=== PATIENT | female | born 1960 | race Caucasian/White ===

== ENCOUNTER 2017-08-30 08:11 | Day surgery (SDC) | payer MEDICAID ==
[~2017-08-30 08:11] MED LIST: Bupivacaine 0.25%/EPINEPHrine 1:200,000 10 ML SDV INJECT ONE; Bupivacaine 25%/EPINEPHrine/PF 30 ML ONE; Lactated Ringers 1,000 ML IV SCH; traMADol 50 MG Tab PO PRN
--- NOTE | 2017-08-30 08:38 | PCM.PREANE ---
Preanesthetic Assessment - Anesthesia/Transfusion/Family Hx Anesthesia History: Prior Anesthesia Reaction Other Type of Anesthesia Reaction Comment: pt. reports vomiting post surgery x1 Family History of Anesthesia Reaction: No Transfusion History: No Prior Transfusion(s) Intubation History: Unknown - Review of Systems General: No Symptoms Pulmonary: No Symptoms Cardiovascular: No Symptoms Gastrointestinal: No Symptoms Neurological: No Symptoms Other: Reports: None - Physical Assessment Height: 1.65 m Weight: 63.049 kg ASA Class: 2 Mental Status: Alert & Oriented x3 Airway Class: Mallampati = 2 Dentition: Reports: Normal Dentition, Bridge (permanent bridge upper front) Thyro-Mental Finger Breadths: 2 Mouth Opening Finger Breadths: 2 ROM/Head Extension: Limited/Partial Lungs: Clear to Auscultation, Normal Respiratory Effort Cardiovascular: Regular Rate, Regular Rhythm - Allergies Allergies/Adverse Reactions: Allergies Allergy/AdvReac Type Severity Reaction Status Date / Time codeine Allergy Drowsiness Verified 08/28/17 10:22 erythromycin base Allergy Vomiting Verified 08/28/17 10:22 Penicillins Allergy Rash Verified 08/28/17 10:22 - Blood Blood Available: No - Anesthesia Plan Pre-Op Medication Ordered: None - Acknowledgements Anesthesia Type Planned: MAC Pt an Appropriate Candidate for the Planned Anesthesia: Yes Alternatives and Risks of Anesthesia Discussed w Pt/Guardian: Yes Pt/Guardian Understands and Agrees with Anesthesia Plan: Yes PreAnesthesia Questionnaire HEENT History: Reports: Cataract Other HEENT History: uses reading glasses, has upper permanent dental bridge Cardiovascular History: Reports: Other (See Below) Other Cardiovascular History: states hx of low blood pressure Respiratory History: Reports: Asthma, Bronchitis, Recurrent Other Respiratory History: states HX of asthma, "has been really good lately"- no inhaler Gastrointestinal History: Reports: Chronic Constipation Other Gastrointestinal History: states hx of heartburn/ GERD. has not had recently Musculoskeletal History: Reports: Fracture Other Musculoskeletal History: hx of "chipped" right elbow and both ankles Neurological History: Reports: Other (See Below) Other Neuro History: Neurofibromatosis, hx of motion sickness Psychiatric History: Reports: Anxiety Endocrine/Metabolic History: Reports: Other (See Below) Other Endocrine/Metabolic History: states "aspiration of thyroid fluid x5" Oncologic (Cancer) History: Reports: Basal Cell Carcinoma Other Oncologic History: removed from back Dermatologic History: Reports: Other (See Below) - Past Surgical History HEENT Surgical History: Reports: Cataract Surgery GI Surgical History: Reports: Colonoscopy, Other (See Below) Other GI Surgeries/Procedures: hx of hemorrhoidectomy Female Surgical History: Reports: Hysterectomy Musculoskeletal Surgical History: Reports: Other (See Below) Other Musculoskeletal Surgeries/Procedures:: Excision of multiple neurofibromas - SUBSTANCE USE Smoking Status *Q: Never Smoker Recreational Drug Use History: No - HOME MEDS Home Medications: Home Meds Docusate Sodium [Colace] 100 mg PO DAILY 08/28/17 [History] Polyethylene Glycol 3350 [MiraLAX] 1 pkt PO ASDIRECTED 08/28/17 [History] Psyllium Husk [Fiber] 1 cap PO DAILY 08/28/17 [History] - CURRENT (IN HOUSE) MEDS Current Meds: Current Medications Lactated Ringer's (Ringers, Lactated) 1,000 mls @ 125 mls/hr IV ASDIRECTED [facility] Last Admin: 08/30/17 08:20 Dose: 125 mls/hr Tramadol HCl (Ultram) 50 mg PO Q4H PRN PRN Reason: Pain Discontinued Medications Bupivacaine HCl/Epinephrine Bitart (Marcaine 0.25%/Epinephrine 1:200,000) 10 ml INJECT ONETIME ONE Stop: 08/30/17 08:01 Bupivacaine HCl/Epinephrine Bitart (Sensorc Mpf 0.25%-Epi 1:[id number]) Confirm Administered Dose 30 mls @ as directed .ROUTE .STK-MED ONE Stop: 08/30/17 07:20
[2017-08-30] MEDS ORDERED: fentaNYL 100 MCG/2 ML SDV ONE (08:55)
[2017-08-30] MEDS ORDERED: Propofol 200 MG/20 ML SDV ONE ×2 (08:55→09:40)
[2017-08-30] MEDS ORDERED: Midazolam 1 MG/ML 2 ML SDV ONE (08:55)
[2017-08-30] MEDS ORDERED: Lidocaine 2% 5 ML SDV ONE (08:56)
[2017-08-30] MEDS ORDERED: Octyl 2-Cyanoacrylate 1 Tube ONE (09:43)
[2017-08-30] MEDS ORDERED: ePHEDrine 50 MG/ML SDV ONE (09:51)
--- NOTE | 2017-08-30 10:19 | PCM.OPNOTE ---
- General Post-Op/Procedure Note Date of Surgery/Procedure: 08/30/17 Operative Procedure(s): excision of 1.5cm chest, 1cm right leg, 2cm left arm and 2cm back neurofibromas. Simple closures. Pre Op Diagnosis: neurofibromatosis Post-Op Diagnosis: Same Anesthesia Technique: Local, MAC Primary Surgeon: Beatriz Alvarenga Complications: None Condition: Good
[2017-08-30 10:58] VITALS: BP 112/55
--- NOTE | 2017-08-30 10:58 | PCM48HPAN ---
Post Anesthesia Note - EVALUATION WITHIN 48HRS OF ANESTHETIC Vital Signs in Normal Range: Yes Patient Participated in Evaluation: Yes Respiratory Function Stable: Yes Airway Patent: Yes Cardiovascular Function Stable: Yes Hydration Status Stable: Yes Pain Control Satisfactory: Yes Nausea and Vomiting Control Satisfactory: Yes Mental Status Recovered: Yes Resp Rate: 13 - COMMENTS/OBSERVATIONS Free Text/Narrative:: no anesthesia problems
--- NOTE | 2017-08-30 15:45 | OR ---
SURGEON: JASMIN ROBINS MD DATE OF PROCEDURE: 08/30/2017 PREOPERATIVE DIAGNOSIS: Neurofibromatosis with multiple lesions. POSTOPERATIVE DIAGNOSIS: Neurofibromatosis with multiple lesions. PROCEDURES: 1. Excision of 2 cm back neurofibroma with simple 2 cm closure. 2. Excision of 1.5 cm chest neurofibroma with simple closure. 3. Excision of left arm 2 cm neurofibroma with simple closure. 4. Excision of 1 cm leg neurofibroma with simple closure. INDICATIONS: Ms. Johnson is a 57-year-old female, seen today in evaluation for several neurofibromas that are bothersome to her. She has neurofibromas too numerous to count, there are only four that are actually causing irritation and pain at this time. They are somewhat deep in most of the areas. The left arm, chest, and back neurofibromas are in the subcutaneous tissue in the fat layer below the skin and are quite deep. The right leg neurofibroma is more pedunculated in the skin. We discussed risks and benefits of removal in the operating room, given the deep component of these. Risks were including, but not limited to, bleeding, infection, damage to underlying or overlying structures, possible need for future interventions, possible scarring. PROCEDURE IN DETAIL: After informed consent was obtained and placed on the chart, the patient was brought to operating theater and laid in the supine position. After adequate local MAC anesthesia was obtained, over the anterior lesion the chest neurofibroma was excised in elliptical fashion taking care to dissect circumferentially around the lesion not leaving anything behind. Dissection was carried down into the subcutaneous tissues and meticulous hemostasis was obtained. Attention was then paid to the right leg lesion and was excised for an ellipse and closed using a 4-0 Monocryl in simple 1 cm closure. The left arm lesion was then addressed and dissection was carried circumferentially again through the skin and subcutaneous tissues into the deeper fat layer. Once adequately excised circumferentially, the area was hemostasis and closed using a 4-0 nylon stitch again in a simple fashion for 2 cm. These three wounds were then dressed with Dermabond. Once allowed to dry, the patient was laid on her side and attention was then paid to the 2 cm back neurofibroma. It was anesthetized and prepped in normal fashion and once ready, excised in elliptical fashion taking care to dissect circumferentially around into the subcutaneous tissue and deep fat layer. Once adequately excised meticulous hemostasis was obtained, and 3-0 Prolene suture was used for 2 cm closure in a simple fashion. This was dressed with a Tegaderm border. The patient tolerated this well. All counts and needles were correct at the end of the case. FOLLOWUP INSTRUCTIONS: The patient was given a prescription for pain control, and she will see us in clinic in 2 weeks sooner if any problems, questions, or concerns. Wound care instructions provided. HESUBHA / CHRISTIANO /[id number]
== END 2017-08-30 11:10 | disposition home or self-care (01) ==
LOC: MW.SDS 08:11
PROVIDERS: ATTEND Plastic Surgery
DX: Q85.00 Neurofibromatosis, unspecified (principal); J45.909 Unspecified asthma, uncomplicated; K59.09 Other constipation; K21.9 Gastro-esophageal reflux disease without esophagitis; F41.9 Anxiety disorder, unspecified; Z88.5 Allergy status to narcotic agent; Z88.8 Allergy status to other drugs, medicaments and biological substances; Z88.0 Allergy status to penicillin; Z79.899 Other long term (current) drug therapy; Z98.890 Other specified postprocedural states
CPT/HCPCS: 64792; 88305; A9270; J2250; J3010; J7120; J0690; J2704

== ENCOUNTER 2018-05-04 07:04 | Day surgery (SDC) | payer MEDICAID ==
[2018-05-04] MEDS ORDERED: Midazolam 1 MG/ML 2 ML SDV ONE (07:28)
[2018-05-04] MEDS ORDERED: Propofol 200 MG/20 ML SDV ONE ×2 (07:28→08:50)
[2018-05-04] MEDS ORDERED: fentaNYL 100 MCG/2 ML SDV ONE (07:28)
--- NOTE | 2018-05-04 07:47 | PCM.PREANE ---
Preanesthetic Assessment - Anesthesia/Transfusion/Family Hx Anesthesia History: Prior Anesthesia Reaction (no ponv after use of zofran intra op) Other Type of Anesthesia Reaction Comment: pt. reports vomiting post surgery x1 Transfusion History: No Prior Transfusion(s) Intubation History: Unknown - Review of Systems General: No Symptoms Pulmonary: No Symptoms Cardiovascular: No Symptoms Gastrointestinal: No Symptoms Neurological: No Symptoms Other: Reports: None - Physical Assessment O2 Sat by Pulse Oximetry: 97 Respiratory Rate: 16 Vital Signs: Last Vital Signs Temp 98.2 F 05/04/18 07:30 Pulse 80 05/04/18 07:30 Resp 16 05/04/18 07:30 BP 124/78 05/04/18 07:30 Pulse Ox 97 05/04/18 07:30 Height: 5 ft 5 in Weight: 63.049 kg ASA Class: 2 Mental Status: Alert & Oriented x3 Airway Class: Mallampati = 1 Dentition: Reports: Bridge (central maxillary) ROM/Head Extension: Full Lungs: Clear to Auscultation, Normal Respiratory Effort Cardiovascular: Regular Rate, Regular Rhythm - Allergies Allergies/Adverse Reactions: Allergies Allergy/AdvReac Type Severity Reaction Status Date / Time codeine Allergy Drowsiness Verified 05/02/18 09:37 erythromycin base Allergy Vomiting Verified 05/02/18 09:37 Penicillins Allergy Rash Verified 05/02/18 09:37 - Blood Blood Available: No - Anesthesia Plan Pre-Op Medication Ordered: None - Acknowledgements Anesthesia Type Planned: MAC Pt an Appropriate Candidate for the Planned Anesthesia: Yes Alternatives and Risks of Anesthesia Discussed w Pt/Guardian: Yes Pt/Guardian Understands and Agrees with Anesthesia Plan: Yes PreAnesthesia Questionnaire HEENT History: Reports: Cataract, Other (See Below) Other HEENT History: uses glasses for reading Cardiovascular History: Reports: Other (See Below) Other Cardiovascular History: states hx of low blood pressure Respiratory History: Reports: Asthma, Bronchitis, Recurrent Other Respiratory History: states HX of asthma, "has been really good lately"- no inhaler Gastrointestinal History: Reports: Chronic Diarrhea, GERD Other Gastrointestinal History: states hx of heartburn/ GERD. has not had recently Genitourinary History: Reports: None Musculoskeletal History: Reports: Back Pain, Chronic, Fracture, Other (See Below ) Other Musculoskeletal History: she was told she had a disease simular to Cerebral Palsy when she was born- never diagnosed hx of fx right elbow and bilateral ankles (no surgery) Neurological History: Reports: Other (See Below) Other Neuro History: hx of Neurofibromatosis Psychiatric History: Reports: Anxiety Endocrine/Metabolic History: Reports: Other (See Below) Other Endocrine/Metabolic History: fluid around thyroid gland Oncologic (Cancer) History: Reports: Basal Cell Carcinoma Other Oncologic History: removed from back Dermatologic History: Reports: Other (See Below) - Past Surgical History HEENT Surgical History: Reports: Cataract Surgery Female Surgical History: Reports: Hysterectomy Endocrine Surgical History: Reports: Other (See Below) Other Endocrine Surgeries/Procedures: drainage of fluid from thyroid gland Neurological Surgical History: Reports: Other (See Below) Other Neurological Surgeries/Procedures: removal of multiple neurofibromas Oncologic Surgical History: Reports: Other (See Below) Other Oncologic Surgeries/Procedures: basal cell removed from back Dermatological Surgical History: Reports: Skin Biopsy - SUBSTANCE USE Smoking Status *Q: Never Smoker Recreational Drug Use History: No - HOME MEDS Home Medications: Home Meds Docusate Sodium [Colace] 100 mg PO DAILY 08/28/17 [History] Polyethylene Glycol 3350 [MiraLAX] 1 pkt PO ASDIRECTED 08/28/17 [History] Psyllium Husk [Fiber] 1 cap PO DAILY 08/28/17 [History] Mv-Mn/Folic Acid/Calcium/Vit K [Women's 50 Plus Daily Formula] 1 tab PO DAILY [History] - CURRENT (IN HOUSE) MEDS Current Meds: Current Medications Bupivacaine HCl/Epinephrine Bitart (Marcaine 0.25%/Epinephrine 1:200,000) 30 ml INJECT ONETIME ONE Stop: 05/04/18 08:01 Lactated Ringer's (Ringers, Lactated) 1,000 mls @ 125 mls/hr IV ASDIRECTED [facility] Tramadol HCl (Ultram) 50 mg PO Q4H PRN PRN Reason: Pain Discontinued Medications Fentanyl (Sublimaze) Confirm Administered Dose 100 mcg .ROUTE .STK-MED ONE Stop: 05/04/18 07:29 Midazolam HCl (Versed 1 Mg/Ml) Confirm Administered Dose 2 mg .ROUTE .STK-MED ONE Stop: 05/04/18 07:29 Propofol (Diprivan 20 Ml) Confirm Administered Dose 200 mg .ROUTE .STK-MED ONE Stop: 05/04/18 07:29
[2018-05-04] MEDS ORDERED: Lactated Ringers 1,000 ML IV SCH (08:00)
[2018-05-04] MEDS ORDERED: Bupivacaine 0.25%/EPINEPHrine 1:200,000 10 ML SDV INJECT ONE (08:00)
[2018-05-04] MEDS ORDERED: traMADol 50 MG Tab PO PRN (08:00)
[2018-05-04] MEDS ORDERED: Bupivacaine 25%/EPINEPHrine/PF 30 ML ONE (08:26)
[2018-05-04] MEDS ORDERED: Ondansetron 4 MG/2 ML SDV IVPUSH ONE (09:04)
[2018-05-04] MEDS ORDERED: fentaNYL 100 MCG/2 ML SDV IVPUSH PRN (09:04)
[2018-05-04] MEDS ORDERED: Bupivacaine 0.25%/EPINEPHrine 1:200,000 10 ML SDV ONE (09:23)
--- NOTE | 2018-05-04 10:55 | PCM48HPAN ---
Post Anesthesia Note - EVALUATION WITHIN 48HRS OF ANESTHETIC Vital Signs in Normal Range: Yes Patient Participated in Evaluation: Yes Respiratory Function Stable: Yes Airway Patent: Yes Cardiovascular Function Stable: Yes Hydration Status Stable: Yes Pain Control Satisfactory: Yes Nausea and Vomiting Control Satisfactory: Yes Mental Status Recovered: Yes Resp Rate: 18
[2018-05-04 11:13] VITALS: BP 110/68
--- NOTE | 2018-05-07 12:58 | PCM.OPNOTE ---
- General Post-Op/Procedure Note Date of Surgery/Procedure: 05/04/18 Operative Procedure(s): excision of 4 back neurofibromas 2cm each with simple closure, excision of right leg neurofibroma 6cm with 6cm intermediate repair, excison of 2 left leg neurofibromas 1.5cm and 2cm with simple closures, excision of left foot lesion 1.5cm with simple repair, excision of right cheek/ face neurofibroma 2cm with simple repair. Pre Op Diagnosis: neurofibromatosis Post-Op Diagnosis: Same Anesthesia Technique: Local, MAC Primary Surgeon: Beatriz Alvarenga Cleaner Laboratory Equipment: Holley Danielle Complications: None Condition: Good Free Text/Narrative:: [id number]
--- NOTE | 2018-05-07 14:01 | OR ---
SURGEON: JASMIN ROBINS MD DATE OF PROCEDURE: 05/04/2018 PREOPERATIVE DIAGNOSIS: Neurofibromatosis. POSTOPERATIVE DIAGNOSIS: Neurofibromatosis, multiple irritated lesions. PROCEDURES: 1. Excision of right leg neurofibroma 6 cm with a 6 cm intermediate repair. 2. Excision of 4 back neurofibromas, 2 cm each with simple closure each. 3. Excision of 2 left leg neurofibromas, 1.5 cm and 2 cm respectively with simple closures each. 4. Excision of left foot lesion 1.5cm with simple repair. 5. Excision of right cheek base neurofibroma 2 cm with simple repair. PEACH GROWER: SUSANA Briseno. REASON FOR AND ROLE OF PEACH GROWER: Retraction, prepping, draping, positioning and closure assistance. ANESTHESIA: Local MAC. INDICATIONS: Ms. Johnson is a 58-year-old female with significant neurofibromatosis. She has several lesions that are bothering her and have grown. Risks and benefits of removal were discussed with her and she was in agreement to proceed. Risks were including, but not limited to, bleeding, infection, damage to underlying or overlying structures, possible need for future interventions, possible scarring. PROCEDURE IN DETAIL: After informed consent was obtained and placed on the chart, the patient was brought to the operating theater and laid in a floppy lateral left side down decubitus position. Once adequately prepped and draped, attention was then paid first the 4 back neurofibromas which were excised in elliptical fashion for 2 cm each. These were sent to pathology separately and closed in a simple fashion using a deep Monocryl stitch. Once adequately closed, they were dressed with Steri-Strips. Attention was then paid to excision of the right leg neurofibroma for a total of 6 cm with a 6 cm intermediate repair. She tolerated this well and was dressed with Steri-Strips. Attention was then paid to excision of the left leg neurofibromas after repositioning and the medial and lateral leg lesions were excised for a total length of 1.5 cm and 2 cm respectively. Both were closed in a simple fashion using deep Monocryl stitches and dressed with Steri-Strips. Attention was then paid to the left foot lesion and this was excised in an elliptical fashion again for 1.5 cm with simple repair for the same length. It was again dressed with Steri-Strips. Attention was then paid to the right cheek lesion and this was anesthetized and excised for an elliptical fashion for 2 cm and closed again using a simple repair. The patient tolerated this well and all counts and needles were correct at the end of the case. HESUBHA / CHRISTIANO /[id number] MTDD
== END 2018-05-04 11:30 | disposition home or self-care (01) ==
LOC: MW.SDS 07:04
PROVIDERS: ATTEND Plastic Surgery
DX: D23.5 Other benign neoplasm of skin of trunk (principal); D23.72 Other benign neoplasm of skin of left lower limb, including hip; D23.71 Other benign neoplasm of skin of right lower limb, including hip; D23.39 Other benign neoplasm of skin of other parts of face; J40 Bronchitis, not specified as acute or chronic; K21.9 Gastro-esophageal reflux disease without esophagitis; F41.9 Anxiety disorder, unspecified; Z88.0 Allergy status to penicillin; Z88.5 Allergy status to narcotic agent; Z79.899 Other long term (current) drug therapy
CPT/HCPCS: 21011; 21930; 27327; 27632; 28039; J2250; J2704; J3010; J3490; J7120; 88305

== ENCOUNTER 2018-09-18 07:13 | Day surgery (SDC) | payer MEDICAID ==
[~2018-09-18 07:13] MED LIST changes: -Bupivacaine 0.25%/EPINEPHrine 1:200,000 10 ML SDV INJECT ONE; -Bupivacaine 25%/EPINEPHrine/PF 30 ML ONE; +Sodium Chloride 0.9% 10 ML SDV IV PRN; +Sodium Chloride 0.9% 10 ML Syringe FLUSH PRN; +Sodium Chloride 0.9% 2.5 ML Syringe FLUSH PRN; -traMADol 50 MG Tab PO PRN
--- NOTE | 2018-09-18 08:29 | PCM.PREANE ---
Preanesthetic Assessment - Anesthesia/Transfusion/Family Hx Anesthesia History: Prior Anesthesia Reaction Other Type of Anesthesia Reaction Comment: pt. reports vomiting post surgery x1 Family History of Anesthesia Reaction: No Transfusion History: No Prior Transfusion(s) Intubation History: Unknown - Review of Systems General: No Symptoms Pulmonary: No Symptoms Cardiovascular: No Symptoms Gastrointestinal: Constipation Neurological: No Symptoms Other: Reports: None - Physical Assessment O2 Sat by Pulse Oximetry: 98 Respiratory Rate: 14 Vital Signs: Last Vital Signs Temp 36.1 C 09/18/18 07:35 Pulse 82 09/18/18 07:35 Resp 14 09/18/18 07:35 BP 113/79 09/18/18 07:35 Pulse Ox 98 09/18/18 07:35 Height: 5 ft 5 in Weight: 63.957 kg ASA Class: 2 Mental Status: Alert & Oriented x3 Airway Class: Mallampati = 2 Dentition: Reports: Bridge (permanent bridge upper front) Thyro-Mental Finger Breadths: 3 Mouth Opening Finger Breadths: 2 ROM/Head Extension: Full Lungs: Clear to Auscultation, Normal Respiratory Effort Cardiovascular: Regular Rate, Regular Rhythm - Allergies Allergies/Adverse Reactions: Allergies Allergy/AdvReac Type Severity Reaction Status Date / Time codeine Allergy Drowsiness Verified 09/13/18 09:40 erythromycin base Allergy Vomiting Verified 09/13/18 09:40 Penicillins Allergy Rash Verified 09/13/18 09:40 metal Allergy Rash Uncoded 09/13/18 09:40 - Blood Blood Available: No - Anesthesia Plan Pre-Op Medication Ordered: None - Acknowledgements Anesthesia Type Planned: MAC Pt an Appropriate Candidate for the Planned Anesthesia: Yes Alternatives and Risks of Anesthesia Discussed w Pt/Guardian: Yes Pt/Guardian Understands and Agrees with Anesthesia Plan: Yes PreAnesthesia Questionnaire HEENT History: Reports: Cataract, Other (See Below) Other HEENT History: uses glasses for reading, top premanent bridge Cardiovascular History: Reports: Other (See Below) Other Cardiovascular History: states hx of low blood pressure Respiratory History: Reports: Asthma Other Respiratory History: states HX of asthma as a young adult Gastrointestinal History: Reports: Hemorrhoids, Other (See Below) Other Gastrointestinal History: heartburn and reflux in the past, none recently Genitourinary History: Reports: None Musculoskeletal History: Reports: Back Pain, Chronic, Fracture, Other (See Below ) Other Musculoskeletal History: "muscle and nerve disorer", hx of "chip fracture" to right elbow and bilateral ankles (no surgery) Neurological History: Reports: Other (See Below) Other Neuro History: hx of Neurofibromatosis, "muscle and nerve disorder" Psychiatric History: Reports: Anxiety, Depression Endocrine/Metabolic History: Reports: Other (See Below) Other Endocrine/Metabolic History: "fluid around thyroid gland drained" Hematologic History: Reports: None Immunologic History: Reports: None Oncologic (Cancer) History: Reports: Basal Cell Carcinoma Dermatologic History: Reports: Other (See Below) - Past Surgical History Head Surgeries/Procedures: Reports: None HEENT Surgical History: Reports: Cataract Surgery Cardiovascular Surgical History: Reports: None Respiratory Surgical History: Reports: None GI Surgical History: Reports: Colonoscopy (10 years ago - normal), Other (See Below) Other GI Surgeries/Procedures: hx of hemorrhoidectomy Female Surgical History: Reports: Hysterectomy Endocrine Surgical History: Reports: None Neurological Surgical History: Reports: None Musculoskeletal Surgical History: Reports: Other (See Below) Other Musculoskeletal Surgeries/Procedures:: Excision of multiple neurofibromas Oncologic Surgical History: Reports: Other (See Below) Other Oncologic Surgeries/Procedures: basal cell removed from back Dermatological Surgical History: Reports: Skin Biopsy - SUBSTANCE USE Smoking Status *Q: Never Smoker Recreational Drug Use History: No - HOME MEDS Home Medications: Home Meds Docusate Sodium [Colace] 100 mg PO DAILY 08/28/17 [History] Polyethylene Glycol 3350 [MiraLAX] 1 pkt PO ASDIRECTED 08/28/17 [History] Psyllium Husk [Fiber] 1 cap PO DAILY 08/28/17 [History] - CURRENT (IN HOUSE) MEDS Current Meds: Current Medications Lactated Ringer's (Ringers, Lactated) 1,000 mls @ 125 mls/hr IV ASDIRECTED [facility] Last Admin: 09/18/18 07:39 Dose: 125 mls/hr Sodium Chloride (Saline Flush) 10 ml FLUSH ASDIRECTED PRN PRN Reason: Keep Vein Open Sodium Chloride (Saline Flush) 2.5 ml FLUSH ASDIRECTED PRN PRN Reason: Keep Vein Open Sodium Chloride (Saline Flush) 10 ml FLUSH ASDIRECTED PRN PRN Reason: Keep Vein Open Sodium Chloride (Saline Flush) 2.5 ml FLUSH ASDIRECTED PRN PRN Reason: Keep Vein Open Sodium Chloride (Normal Saline) 10 ml IV ASDIRECTED PRN PRN Reason: IV Use
--- NOTE | 2018-09-18 11:00 | PCM.OPNOTE ---
- General Post-Op/Procedure Note Date of Surgery/Procedure: 09/18/18 Operative Procedure(s): Screening colonoscopy Findings: Diverticulosis Pre Op Diagnosis: Screening colonoscopy Post-Op Diagnosis: diverticulosis Anesthesia Technique: MAC Primary Surgeon: Noni Wood Condition: Good
--- NOTE | 2018-09-18 11:33 | PCM48HPAN ---
Post Anesthesia Note - EVALUATION WITHIN 48HRS OF ANESTHETIC Vital Signs in Normal Range: Yes Patient Participated in Evaluation: Yes Respiratory Function Stable: Yes Airway Patent: Yes Cardiovascular Function Stable: Yes Hydration Status Stable: Yes Pain Control Satisfactory: Yes Nausea and Vomiting Control Satisfactory: Yes Mental Status Recovered: Yes Resp Rate: 10 - COMMENTS/OBSERVATIONS Free Text/Narrative:: No anesthesia problems
[2018-09-18 11:36] VITALS: BP 119/73
--- NOTE | 2018-09-18 14:21 | OR ---
SURGEON: NONI WOOD MD DATE OF PROCEDURE: 09/18/2018 PREOPERATIVE DIAGNOSIS: Screening colonoscopy. POSTOPERATIVE DIAGNOSIS: Diverticulosis. PROCEDURE PERFORMED: Screening colonoscopy. PRIMARY SURGEON: Endoscopist, Noni oWod MD. ANESTHESIA: MAC. INSTRUMENT USED: Olympus colonoscope. EXTENT OF EXAM: To the cecum. PREPARATION: Good. LIMITATIONS: None. INDICATION FOR EXAMINATION: The patient is a 58-year-old female who is here for a repeat screening colonoscopy. Her last one was normal. I explained the procedure, expected perioperative course, and risks including bleeding, infection, or damage to surrounding structures including perforation. The patient verbalized understanding and wishes to proceed. PROCEDURE IN DETAIL: The patient was brought into the endoscopy suite and placed in a left lateral decubitus position. A time-out was completed verifying the patient's name, age, date of , allergies, and procedure to be performed. Monitored anesthesia care was induced and continuous oxygen was provided via nasal cannula throughout the procedure. After adequate sedation was achieved, a digital rectal exam was performed. This exam was within normal limits. A well lubricated colonoscope was inserted into the rectum and advanced under direct visualization to the level of the cecum. Cecum was identified by both visual and anatomic landmarks. A photograph was taken of the cecal cap; however, I was unable to retroflex the scope within the cecum due to looping of the scope more proximally. The scope was then fully withdrawn while examining the color, texture, anatomy, and integrity of the mucosa from the cecum to the anal canal. The patient had mild diverticulosis within the sigmoid colon. A photograph of this was taken. The scope was then brought into the rectum and retroflexed to allow visualization of the anal canal opening. It appeared normal and a photograph was taken. The scope was then straightened out and fully withdrawn. Cecum to anus time was 7 minutes. The patient tolerated the procedure well and was taken to PACU in stable condition. ENDOSCOPIC DIAGNOSIS: Diverticulosis. RECOMMENDATIONS: Follow up in clinic in 2 weeks. JEFF ALVARADO /[id number]
== END 2018-09-18 11:51 | disposition home or self-care (01) ==
LOC: MW.SDS 07:13
PROVIDERS: ATTEND Surgery
DX: K57.30 Diverticulosis of large intestine without perforation or abscess without bleeding (principal); Z80.0 Family history of malignant neoplasm of digestive organs; J45.909 Unspecified asthma, uncomplicated; Z88.1 Allergy status to other antibiotic agents; Z88.5 Allergy status to narcotic agent; Z88.0 Allergy status to penicillin; Z91.048 Other nonmedicinal substance allergy status; Z86.69 Personal history of other diseases of the nervous system and sense organs; Z98.890 Other specified postprocedural states
CPT/HCPCS: 45378; J7120

== ENCOUNTER 2019-06-20 06:33 | Day surgery (SDC) | payer MEDICAID ==
[~2019-06-20 06:33] MED LIST changes: +ceFAZolin 1 GM in Premix Bag 1 BAG IV ONE
[2019-06-20] MEDS ORDERED: fentaNYL 100 MCG/2 ML SDV ONE (07:16)
[2019-06-20] MEDS ORDERED: Propofol 200 MG/20 ML SDV ONE (07:16)
[2019-06-20] MEDS ORDERED: Lidocaine 2% 5 ML SDV ONE (07:17)
[2019-06-20] MEDS ORDERED: Ondansetron 4 MG/2 ML SDV ONE (07:17)
[2019-06-20] MEDS ORDERED: Rocuronium 100 MG/10 ML Syringe ONE (07:17)
--- NOTE | 2019-06-20 07:19 | PCM.PREANE ---
Preanesthetic Assessment - Anesthesia/Transfusion/Family Hx Anesthesia History: Prior Anesthesia Reaction Other Type of Anesthesia Reaction Comment: pt. reports vomiting post surgery x1 Family History of Anesthesia Reaction: No Transfusion History: No Prior Transfusion(s) Intubation History: Unknown - Review of Systems General: No Symptoms Pulmonary: No Symptoms Cardiovascular: No Symptoms Gastrointestinal: No Symptoms Neurological: No Symptoms Other: Reports: None - Physical Assessment Vital Signs: Last Vital Signs Temp 36.8 C 06/20/19 07:10 Pulse 77 06/20/19 07:10 Resp 16 06/20/19 07:10 BP 116/70 06/20/19 07:10 Pulse Ox 97 06/20/19 07:10 Height: 5 ft 5 in Weight: 62.142 kg ASA Class: 2 Mental Status: Alert & Oriented x3 Airway Class: Mallampati = 2 Dentition: Reports: Partial (fixed upper front) Thyro-Mental Finger Breadths: 3 Mouth Opening Finger Breadths: 3 ROM/Head Extension: Full Lungs: Clear to Auscultation, Normal Respiratory Effort Cardiovascular: Regular Rate, Regular Rhythm - Allergies Allergies/Adverse Reactions: Allergies Allergy/AdvReac Type Severity Reaction Status Date / Time codeine Allergy Drowsiness Verified 06/20/19 07:07 erythromycin base Allergy Vomiting Verified 06/20/19 07:07 Penicillins Allergy Rash Verified 06/20/19 07:07 metal Allergy Rash Uncoded 06/20/19 07:07 - Blood Blood Available: No - Anesthesia Plan Pre-Op Medication Ordered: None - Acknowledgements Anesthesia Type Planned: General Anesthesia Pt an Appropriate Candidate for the Planned Anesthesia: Yes Alternatives and Risks of Anesthesia Discussed w Pt/Guardian: Yes Pt/Guardian Understands and Agrees with Anesthesia Plan: Yes PreAnesthesia Questionnaire HEENT History: Reports: Cataract, Other (See Below) Other HEENT History: uses glasses for reading, top premanent bridge Cardiovascular History: Reports: Other (See Below) Other Cardiovascular History: states hx of low blood pressure Respiratory History: Reports: Asthma Other Respiratory History: states HX of asthma as a young adult Gastrointestinal History: Reports: Chronic Constipation, Diverticulosis, Hemorrhoids, Other (See Below) Other Gastrointestinal History: heartburn and reflux in the past, none recently Genitourinary History: Reports: None DINING ROOM HOSTESS History: Reports: None Musculoskeletal History: Reports: Arthritis, Back Pain, Chronic, Fracture, Other (See Below) Other Musculoskeletal History: "muscle and nerve disorder", hx of "chip fracture" to right elbow and bilateral ankles (no surgery) Neurological History: Reports: Other (See Below) Other Neuro History: Neurofibromatosis, "muscle and nerve disorder", chronic fatigue Psychiatric History: Reports: Anxiety, Depression Endocrine/Metabolic History: Reports: Other (See Below) Other Endocrine/Metabolic History: "fluid around thyroid gland drained" Hematologic History: Reports: None Immunologic History: Reports: None Oncologic (Cancer) History: Reports: Basal Cell Carcinoma Dermatologic History: Reports: None - Past Surgical History Head Surgeries/Procedures: Reports: None HEENT Surgical History: Reports: Cataract Surgery Cardiovascular Surgical History: Reports: None Respiratory Surgical History: Reports: None GI Surgical History: Reports: Colonoscopy, Other (See Below) Other GI Surgeries/Procedures: hx of hemorrhoidectomy Female Surgical History: Reports: Breast Biopsy, Hysterectomy Endocrine Surgical History: Reports: None Neurological Surgical History: Reports: None Musculoskeletal Surgical History: Reports: Other (See Below) Other Musculoskeletal Surgeries/Procedures:: Excision of multiple neurofibromas (about 10 surgeries) Oncologic Surgical History: Reports: Other (See Below) Other Oncologic Surgeries/Procedures: basal cell removed from back Dermatological Surgical History: Reports: Skin Biopsy - SUBSTANCE USE Smoking Status *Q: Never Smoker - HOME MEDS Home Medications: Home Meds Docusate Sodium [Colace] 100 mg PO DAILY 08/28/17 [History] Psyllium Husk [Fiber] 1 cap PO DAILY 08/28/17 [History] polyethylene glycoL 3350 [MiraLAX] 1 tsp PO ASDIRECTED 08/28/17 [History] Acetaminophen [Tylenol Extra Strength] 500 mg PO DAILY PRN 06/20/19 [History] - CURRENT (IN HOUSE) MEDS Current Meds: Current Medications Lactated Ringer's (Ringers, Lactated) 1,000 mls @ 125 mls/hr IV ASDIRECTED PHUONG Last Admin: 06/20/19 07:07 Dose: 125 mls/hr Sodium Chloride (Saline Flush) 10 ml FLUSH ASDIRECTED PRN PRN Reason: Keep Vein Open Sodium Chloride (Saline Flush) 2.5 ml FLUSH ASDIRECTED PRN PRN Reason: Keep Vein Open Sodium Chloride (Normal Saline) 10 ml IV ASDIRECTED PRN PRN Reason: IV Use Discontinued Medications Cefazolin Sodium/Dextrose 1 gm (/ Premix) 50 mls @ 100 mls/hr IV ONETIME ONE Stop: 06/14/19 14:04
[2019-06-20] MEDS ORDERED: EPINEPHrine 1:10,000 1 MG/10 ML Syringe IVPUSH PRN (07:20)
[2019-06-20] MEDS ORDERED: Albuterol 0.083% 2.5 MG/3 ML Neb Soln NEB PRN (07:20)
[2019-06-20] MEDS ORDERED: Atropine 0.1 MG/ML 10 ML Syringe IVPUSH PRN ×2 (07:20)
[2019-06-20] MEDS ORDERED: 50% Dextrose in Water 50 ML Syringe IVPUSH PRN (07:20)
[2019-06-20] MEDS ORDERED: fentaNYL 100 MCG/2 ML SDV IVPUSH PRN (07:20)
[2019-06-20] MEDS ORDERED: Naloxone 0.4 MG/ML Syringe IVPUSH PRN (07:20)
[2019-06-20] MEDS ORDERED: Scopolamine 1.5 MG Transdermal Patch TRDERM PRN (07:23)
[2019-06-20] MEDS ORDERED: Bupivacaine 0.5% 30 ML SDV ONE (07:26)
[2019-06-20] MEDS ORDERED: Lidocaine 1% 20 ML MDV ONE (07:27)
[2019-06-20] MEDS ORDERED: Octyl 2-Cyanoacrylate 1 Tube ONE (07:27)
[2019-06-20] MEDS ORDERED: ceFAZolin 1 GM Vial ONE (08:05)
[2019-06-20] MEDS ORDERED: ePHEDrine 50 MG/ML SDV ONE (08:19)
--- NOTE | 2019-06-20 09:32 | PCM.OPNOTE ---
<Kun Walls - Last Filed: 06/20/19 10:23> - General Post-Op/Procedure Note Date of Surgery/Procedure: 06/20/19 Operative Procedure(s): Excision of Neurofibroma lesions : left lower mouth/ inner lip, right lower abdomen, left foot skin lesion and left thumb Pre Op Diagnosis: Skin lesion/neurofibroma excision x 4 Post-Op Diagnosis: Skin lesion/neurofibroma excision x 4 Anesthesia Technique: General ET Tube Primary Surgeon: Noni Wood Output, Urine Amount: 900 EBL in mLs: 5 Complications: none Condition: Good Free Text/Narrative:: Skin lesion/neurofibroma excision x 4 1. Inner lip/left lower mouth: excised 0.3 x 0.2 2. Right lower abdomen: 1.0 x 0.8 cm 3. left lower foot: 1.0 x 0.2 4. left thum neurofibroma lesion removed: 0.6 x 0.3 Neurofibroma lesions removed; local anesthesia injected , area cleaned and sterile prior to excision EBL: 5mL <Noni Wood - Last Filed: 06/20/19 10:31> - General Post-Op/Procedure Note Operative Procedure(s): as well as periorbital lesion Pre Op Diagnosis: Neurofibroma excision x 5 Post-Op Diagnosis: Neurofibroma excision x 5 Anesthesia Technique: General ET Tube Free Text/Narrative:: Intake & Output 06/19/19 06/20/19 06/20/19 22:59 06:59 14:59 Intake Total 950 Output Total 900 Balance 50
--- NOTE | 2019-06-20 09:51 | PCM.POSTAN ---
POST ANESTHESIA ASSESSMENT - MENTAL STATUS Mental Status: Alert, Oriented - VITAL SIGNS Vital Signs: Last Vital Signs Temp 36.9 C 06/20/19 09:19 Pulse 95 06/20/19 09:34 Resp 15 06/20/19 09:34 BP 122/75 06/20/19 09:34 Pulse Ox 95 06/20/19 09:34 - RESPIRATORY Respiratory Status: Respiratory Rate WNL, Airway Patent, O2 Saturation Stable - CARDIOVASCULAR CV Status: Pulse Rate WNL, Blood Pressure Stable - GASTROINTESTINAL GI Status: No Symptoms - PAIN Pain Score: 0 - POST OP HYDRATION Hydration Status: Adequate & Stable - OBSERVATIONS Free Text/Narrative:: No anesthesia problems.
--- NOTE | 2019-06-20 10:45 | PCM48HPAN ---
Post Anesthesia Note - EVALUATION WITHIN 48HRS OF ANESTHETIC Vital Signs in Normal Range: Yes Patient Participated in Evaluation: Yes Respiratory Function Stable: Yes Airway Patent: Yes Cardiovascular Function Stable: Yes Hydration Status Stable: Yes Pain Control Satisfactory: Yes Nausea and Vomiting Control Satisfactory: Yes Mental Status Recovered: Yes Vital Signs: Last Vital Signs Temp 36.9 C 06/20/19 09:19 Pulse 95 06/20/19 09:34 Resp 15 06/20/19 09:34 BP 122/75 06/20/19 09:34 Pulse Ox 95 06/20/19 09:34 - COMMENTS/OBSERVATIONS Free Text/Narrative:: No anesthesia problems
[2019-06-20 11:12] VITALS: BP 148/88; PULSE 81
--- NOTE | 2019-06-21 12:36 | OR ---
SURGEON: NONI WOOD MD DATE OF PROCEDURE: 06/20/2019 PREOPERATIVE DIAGNOSIS: Neurofibromatosis. POSTOPERATIVE DIAGNOSIS: Neurofibromatosis. PROCEDURES PERFORMED: 1. Excision, left periorbital skin lesion. 2. Excision, left inner lip skin lesion. 3. Excision, right lower abdomen skin lesion. 4. Excision, left dorsal foot skin lesion. 5. Excision, left thumb skin lesion. PRIMARY SURGEON: Noni Wood MD COOLER WORKER: law office assistant: Dr. Kun Walls, residential support specialist. FLUIDS: 500 mL of crystalloid. ESTIMATED BLOOD LOSS: 5 mL. FINDINGS: Periorbital skin tag 2 mm in size. Left lateral inner lip skin lesion measuring 0.3 x 0.2 cm in size. Right abdominal skin lesion 1 x 0.8 cm. Left foot skin lesion 1 x 0.2. Left thumb skin lesion 0.6 x 0.3 cm in size. COMPLICATIONS: None. INDICATIONS: The patient is a 59-year-old female with neurofibromatosis. She has multiple neurofibromas on her skin. Several of these are becoming bothersome. They are catching on clothes and the trauma to the skin lesions is bothersome. Decision was made to remove the most symptomatic of the skin lesions. She has one on the inferior left periorbital rim, one on the inner aspect of her left lower lip on the mucosa, one on the right lower abdomen, one on the left thumb, and one on the dorsal aspect of her left foot. I explained the procedure to excise these, expected perioperative course, and risks including bleeding or infection. She verbalized understanding and wishes to proceed. PROCEDURE IN DETAIL: The patient was brought into the OR and placed on the OR table in supine position. A time-out was completed verifying the patient's name, age, date of , allergies, and procedure to be performed. General endotracheal anesthesia was induced. Given the multiplicity of the skin lesions, we prepped and draped each lesion separately as we addressed each of them. Great care was taken to avoid any contamination and to keep the field sterile. The patient was given preoperative antibiotics. We started by addressing the small skin lesion on the left periorbital area. The area was anesthetized with a 1:1 mixture of 1% lidocaine plain and 0.5% Marcaine plain. The lesion was elevated with a pair of Adson's and sharply excised at the base using a 15 blade. Cautery was used to achieve hemostasis. The small skin lesion measured approximately 2 mm in size. Steri-Strips and a sterile dressing were applied. I next addressed the inner lip lesion. The area was prepped and draped with Betadine. I anesthetized the area underneath the mucosal skin lesion with the same anesthetic mixture. An elliptical incision was made along the skin lines using a 15 blade. The blade was then used to undermine the lesion and removed it. It was measured on the back table to be 0.3 x 0.2 x 0.2 cm in size. The wound was then closed with interrupted 5-0 chromic sutures. Hemostasis was achieved. Bacitracin was then applied to the lip. I next addressed the right lower quadrant skin lesion. The area was anesthetized with the same anesthetic mixture. An elliptical skin incision was made along the skin lines. I undermined the lesion using electrocautery. It was placed on the back table and measured 1 x 0.8 x 1 cm in size. Further hemostasis was then achieved with electrocautery. The wound was then closed with interrupted 3-0 Vicryl sutures in the subcutaneous fat layer and the skin was closed with a running 4-0 Monocryl stitch. Steri-Strips and sterile dressings were applied. I then worked on the left foot lesion. It was anesthetized with the same anesthetic mixture. An elliptical skin incision was made along the skin lines using a 15 blade. Cautery was then used to undermine the lesion. It was placed on the back table and measured 1 x 0.5 x 0.2 cm in size. The skin was then closed with interrupted 3-0 Ethilon sutures given that it was in an area of movement. Sterile dressings were applied. The thumb lesion was addressed last. This was anesthetized again with the Marcaine-lidocaine mixture. An elliptical skin incision was made and a 15 blade was used to excise the lesion from its surrounding tissues. It was placed on the back table and measured 0.6 x 0.3 x 0.3 cm in size. Needlepoint electrocautery was used to stop all bleeding. The wound was then closed with interrupted 3-0 Ethilon sutures. Sterile dressings were applied. The patient tolerated the procedure well. She was extubated and taken to the PACU in stable condition. All counts were complete and correct at the end of the case. LEMEASH / MODL /[id number]
== END 2019-06-20 10:50 | disposition home or self-care (01) ==
LOC: MW.SDS 06:33
PROVIDERS: ATTEND Surgery
DX: D36.15 Benign neoplasm of peripheral nerves and autonomic nervous system of abdomen (principal); D36.13 Benign neoplasm of peripheral nerves and autonomic nervous system of lower limb, including hip; D36.12 Benign neoplasm of peripheral nerves and autonomic nervous system, upper limb, including shoulder; L85.9 Epidermal thickening, unspecified; Z88.5 Allergy status to narcotic agent; Z79.899 Other long term (current) drug therapy; Z88.0 Allergy status to penicillin; Z88.1 Allergy status to other antibiotic agents; Z88.8 Allergy status to other drugs, medicaments and biological substances
CPT/HCPCS: 11401; 11421; 11440; 88305; A9270; J0690; J2001; J2405; J2704; J3010; J3490; J7120; 00400

== ENCOUNTER 2020-09-17 08:40 | Emergency (ER) | payer MEDICAID ==
[2020-09-17] MEDS ORDERED: Morphine 4 MG/ML Syringe IM ONE (08:43)
[2020-09-17] MEDS ORDERED: Acetaminophen/oxyCODONE 325-5 MG Tab PO ONE (08:44)
--- NOTE | 2020-09-17 08:46 | EDM.PDOC ---
ED HPI GENERAL MEDICAL PROBLEM - General Chief Complaint: Lower Extremity Injury/Pain Stated Complaint: FALL Time Seen by Provider: 09/17/20 08:42 Source of Information: Reports: Patient History Limitations: Reports: No Limitations - History of Present Illness INITIAL COMMENTS - FREE TEXT/NARRATIVE: 60-year-old female past medical history neurofibromatosis presents status post fall. Patient was ambulating when she tripped and fell on her left sided hip. She notes pain in her left hip and in her midline lower back. She denies hitting her head or loss of consciousness. No nausea or vomiting. She was unable to get up on her own and has not ambulated after the accident. She is not on any blood thinning medications. Left Hip Pain Score (Numeric/FACES): 10 - Related Data Allergies Allergy/AdvReac Type Severity Reaction Status Date / Time codeine Allergy Drowsiness Verified 09/17/20 08:43 erythromycin base Allergy Vomiting Verified 09/17/20 08:43 Penicillins Allergy Rash Verified 09/17/20 08:43 metal Allergy Rash Uncoded 09/17/20 08:43 Home Meds: Home Meds Docusate Sodium [Colace] 100 mg PO DAILY 08/28/17 [History] Psyllium Husk [Fiber] 1 cap PO DAILY 08/28/17 [History] polyethylene glycoL 3350 [MiraLAX] 1 tsp PO ASDIRECTED 08/28/17 [History] Acetaminophen [Tylenol Extra Strength] 500 mg PO DAILY PRN 06/20/19 [History] Past Medical History HEENT History: Reports: Cataract, Other (See Below) Other HEENT History: uses glasses for reading, top premanent bridge Cardiovascular History: Reports: Other (See Below) Other Cardiovascular History: states hx of low blood pressure Respiratory History: Reports: Asthma Other Respiratory History: states HX of asthma as a young adult Gastrointestinal History: Reports: Chronic Constipation, Diverticulosis, Hemorrhoids, Other (See Below) Other Gastrointestinal History: heartburn and reflux in the past, none recently Genitourinary History: Reports: None FINANCIAL COACH History: Reports: None Musculoskeletal History: Reports: Arthritis, Back Pain, Chronic, Fracture, Other (See Below) Other Musculoskeletal History: "muscle and nerve disorder", hx of "chip fracture" to right elbow and bilateral ankles (no surgery) Neurological History: Reports: Other (See Below) Other Neuro History: Neurofibromatosis, "muscle and nerve disorder", chronic fatigue Psychiatric History: Reports: Anxiety, Depression Endocrine/Metabolic History: Reports: Other (See Below) Other Endocrine/Metabolic History: "fluid around thyroid gland drained" Hematologic History: Reports: None Immunologic History: Reports: None Oncologic (Cancer) History: Reports: Basal Cell Carcinoma Dermatologic History: Reports: None - Past Surgical History Head Surgeries/Procedures: Reports: None HEENT Surgical History: Reports: Cataract Surgery Cardiovascular Surgical History: Reports: None Respiratory Surgical History: Reports: None GI Surgical History: Reports: Colonoscopy, Other (See Below) Other GI Surgeries/Procedures: hx of hemorrhoidectomy Female Surgical History: Reports: Breast Biopsy, Hysterectomy Endocrine Surgical History: Reports: None Neurological Surgical History: Reports: None Musculoskeletal Surgical History: Reports: Other (See Below) Other Musculoskeletal Surgeries/Procedures:: Excision of multiple neurofibromas (about 10 surgeries) Oncologic Surgical History: Reports: Other (See Below) Other Oncologic Surgeries/Procedures: basal cell removed from back Dermatological Surgical History: Reports: Skin Biopsy Review of Systems - Review of Systems Review Of Systems: Comprehensive ROS is negative, except as noted in HPI. ED EXAM, GENERAL - Physical Exam Exam: See Below Exam Limited By: No Limitations General Appearance: Alert, WD/WN, No Apparent Distress Eye Exam: Bilateral Eye: EOMI, PERRL Ears: Normal External Exam Nose: Normal Inspection Throat/Mouth: Normal Voice, No Airway Compromise Head: Atraumatic, Normocephalic Neck: Normal Inspection, Non-Tender. No: Tender Midline Respiratory/Chest: No Respiratory Distress, Lungs Clear, Normal Breath Sounds, No Accessory Muscle Use Cardiovascular: Normal Peripheral Pulses, Regular Rate, Rhythm GI/Abdominal: Soft, Non-Tender Back Exam: Normal Inspection, Vertebral Tenderness (lower lumbar spine) Extremities: Normal Inspection, Other (TTP of left hip without pelvic instability) Neurological: Alert, Normal Cognition Psychiatric: Normal Affect, Normal Mood Skin Exam: Warm, Dry, Intact, Normal Color Course - Vital Signs Last Recorded V/S: Last Vital Signs Temp 97.1 F 09/17/20 08:43 Pulse 86 09/17/20 08:43 Resp 16 09/17/20 08:43 BP 124/80 09/17/20 08:43 Pulse Ox 97 09/17/20 08:43 - Orders/Labs/Meds Orders: Active Orders 24 hr Category Date Time Status Lumbar Spine wo Cont [CT] Stat Exams 09/17/20 08:43 Taken CBC WITH AUTO DIFF [HEME] Stat Lab 09/17/20 10:22 Ordered COMPREHENSIVE METABOLIC PN,CMP [CHEM] Stat Lab 09/17/20 10:23 Ordered CORONAVIRUS COVID-19 JUDIE [MOLEC] Stat Lab 09/17/20 10:22 Ordered Sodium Chloride 0.9% [Saline Flush] Med 09/17/20 10:22 Active 10 ml FLUSH ASDIRECTED PRN Sodium Chloride 0.9% [Saline Flush] Med 09/17/20 10:22 Active 2.5 ml FLUSH ASDIRECTED PRN Saline Lock Insert [OM.PC] Stat Oth 09/17/20 10:22 Ordered Medication Orders Sodium Chloride (Sodium Chloride 0.9% 10 Ml Syringe) 10 ml FLUSH ASDIRECTED PRN PRN Reason: Keep Vein Open Sodium Chloride (Sodium Chloride 0.9% 2.5 Ml Syringe) 2.5 ml FLUSH ASDIRECTED PRN PRN Reason: Keep Vein Open Meds: Medications Generic Name Dose Route Start Last Admin Trade Name Freq PRN Reason Stop Dose Admin Sodium Chloride 10 ml 09/17/20 10:22 Sodium Chloride 0.9% 10 Ml Syringe FLUSH ASDIRECTED PRN Keep Vein Open Sodium Chloride 2.5 ml 09/17/20 10:22 Sodium Chloride 0.9% 2.5 Ml Syringe FLUSH ASDIRECTED PRN Keep Vein Open Discontinued Medications Generic Name Dose Route Start Last Admin Trade Name Freq PRN Reason Stop Dose Admin Morphine Sulfate 4 mg 09/17/20 08:43 09/17/20 09:00 Morphine 4 Mg/Ml Syringe IM 09/17/20 08:44 Not Given ONETIME ONE Oxycodone/Acetaminophen 2 tab 09/17/20 08:44 09/17/20 08:55 Acetaminophen/Oxycodone 325-5 Mg Tab PO 09/17/20 08:45 2 tab ONETIME ONE Administration - Re-Assessments/Exams Free Text/Narrative Re-Assessment/Exam: 09/17/20 08:46 We will get x-ray imaging of the left hip and pelvis. Will get CT scan of the lumbar spine. Will give analgesia while working up. 09/17/20 10:24 X-ray imaging reveals femoral neck fracture. Will get basic labs including COVID-19 screening test for admission. 09/17/20 10:[address] Ray at who agrees with plan for ED to ED transfer for orthopedic evaluation. Patient is agreeable. Departure - Departure Time of Disposition: 10:34 Disposition: DC/Tfer to Acute Hospital 02 Condition: Good Clinical Impression: Femoral neck fracture Qualifiers: Encounter type: initial encounter Fracture type: closed Laterality: left Qualified Code(s): S72.002A - Fracture of unspecified part of neck of left femur, initial encounter for closed fracture - Discharge Information Forms: ED Department Discharge Sepsis Event Note (ED) - Focused Exam Vital Signs: Vital Signs Temp Pulse Resp BP Pulse Ox 09/17/20 08:43 97.1 F 86 16 124/80 97 - My Orders Last 24 Hours: My Active Orders 09/17/20 08:43 Lumbar Spine wo Cont [CT] Stat 09/17/20 10:22 CBC WITH AUTO DIFF [HEME] Stat CORONAVIRUS COVID-19 JUDIE [MOLEC] Stat Sodium Chloride 0.9% [Saline Flush] 10 ml FLUSH ASDIRECTED PRN Sodium Chloride 0.9% [Saline Flush] 2.5 ml FLUSH ASDIRECTED PRN Saline Lock Insert [OM.PC] Stat 09/17/20 10:23 COMPREHENSIVE METABOLIC PN,CMP [CHEM] Stat - Assessment/Plan Last 24 Hours: My Active Orders 09/17/20 08:43 Lumbar Spine wo Cont [CT] Stat 09/17/20 10:22 CBC WITH AUTO DIFF [HEME] Stat CORONAVIRUS COVID-19 JUDIE [MOLEC] Stat Sodium Chloride 0.9% [Saline Flush] 10 ml FLUSH ASDIRECTED PRN Sodium Chloride 0.9% [Saline Flush] 2.5 ml FLUSH ASDIRECTED PRN Saline Lock Insert [OM.PC] Stat 09/17/20 10:23 COMPREHENSIVE METABOLIC PN,CMP [CHEM] Stat
--- NOTE | 2020-09-17 10:04 | CR ---
For Patients: As a result of the Cures Act, medical imaging exams and procedure reports are released immediately into your electronic medical record. You may view this report before your referring provider. If you have questions, please contact your health care provider. INDICATION: Fall, left hip Pain TECHNIQUE: Single view pelvis with AP and Frogleg views left hip COMPARISONS: None available. FINDINGS: Femoral heads are well-seated in the acetabula. There is an impacted fracture of the transcervical femoral neck. There is moderate degenerative change of the left hip. There is minimal joint effusion and soft tissue swelling. IMPRESSION: Impacted transcervical femoral neck fracture with associated joint effusion. Dictated by Jatin Edmonds MD @ 09/17/2020 10:03:[address] Jatin Edmonds @ Sep 17 2020 10:03AM
[2020-09-17] MEDS ORDERED: Sodium Chloride 0.9% 10 ML Syringe FLUSH PRN (10:22)
[2020-09-17] MEDS ORDERED: Sodium Chloride 0.9% 2.5 ML Syringe FLUSH PRN (10:22)
--- NOTE | 2020-09-17 11:07 | CT ---
For Patients: As a result of the Century Cures Act, medical imaging exams and procedure reports are released immediately into your electronic medical record. You may view this report before your referring provider. If you have questions, please contact your health care provider. INDICATION: Back pain post fall. TECHNIQUE: Volumetric helical scanning of the lumbar spine was performed without contrast material. Sagittal and coronal reconstructions were also obtained. COMPARISON: None FINDINGS: No fracture, spondylolisthesis or paraspinous hematoma is demonstrated. A broad-based central bulge of the L3-4 disc is noted. Mild L1-2 disc degeneration is noted as well as mild levoscoliosis. IMPRESSION: 1. Negative for lumbar fracture. 2. Broad-based central L3-4 disc bulge. 3. Mild L1-2 disc degeneration. 4. Mild levoscoliosis. Please note that all CT scans at this facility use dose modulation, iterative reconstruction, and/or weight-based dosing when appropriate to reduce radiation dose to as low as reasonably achievable. Dictated by Keven Rocha MD @ 09/17/2020 11:06:[address] Keven Rocha @ Sep 17 2020 11:06AM
[2020-09-17 11:23] LABS: BLOOD UREA NITROGEN,BUN 19 mg/dL (7.0-18.0); CARBON DIOXIDE,CO2 27.1 mmol/L (21.0-32.0); CHLORIDE,CL 106 mmol/L (98-107); GLUCOSE RANDOM 100 mg/dL (74-106); POTASSIUM,K 3.9 mmol/L (3.5-5.1); SODIUM,NA 142 mmol/L (136-145)
[2020-09-17 12:48] VITALS: BP 129/84; PULSE 84
[2020-09-17] MEDS ORDERED: Meclizine 25 MG Tab ONE (13:46)
[2020-09-17] MEDS ORDERED: Meclizine 25 MG Tab PO ONE (13:50)
== END 2020-09-17 13:55 ==
LOC: MW.ED 08:40
DX: S72.002A Fracture of unspecified part of neck of left femur, initial encounter for closed fracture (principal); Z88.0 Allergy status to penicillin; Z88.1 Allergy status to other antibiotic agents; Z88.5 Allergy status to narcotic agent; Z91.048 Other nonmedicinal substance allergy status; W01.0XXA Fall on same level from slipping, tripping and stumbling without subsequent striking against object, initial encounter
CPT/HCPCS: 36415; 72131; 73502; 80053; 85025; 99285; A9270; 99283

== ENCOUNTER 2021-03-18 08:57 | Day surgery (SDC) | payer MEDICAID ==
[~2021-03-18 08:57] MED LIST changes: -Sodium Chloride 0.9% 10 ML SDV IV PRN; +Sodium Chloride 0.9% 20 ML SDV IV PRN; -ceFAZolin 1 GM in Premix Bag 1 BAG IV ONE
--- NOTE | 2021-03-18 09:41 | PCM.PREANE ---
Preanesthetic Assessment - Procedure Proposed Procedure: EGD, Excision of multiple neurofibromas on abd and back - Anesthesia/Transfusion/Family Hx Anesthesia History: Prior Anesthesia Reaction Other Type of Anesthesia Reaction Comment: pt. reports vomiting post surgery x1 Family History of Anesthesia Reaction: No Transfusion History: No Prior Transfusion(s) Intubation History: Unknown - Review of Systems General: No Symptoms Pulmonary: No Symptoms (Remote smoking, Asthma with PRN MDI) Cardiovascular: No Symptoms Gastrointestinal: No Symptoms (H/o Colon polyps) Neurological: Other (Multiple Neurofibromas) Other: Reports: None - Physical Assessment NPO Status Date: 03/17/21 NPO Status Time: 20:30 Vital Signs: Last Vital Signs Temp 97.7 F 03/18/21 09:18 Pulse 75 03/18/21 09:18 Resp 16 03/18/21 09:18 BP 107/69 03/18/21 09:18 Pulse Ox 94 L 03/18/21 09:18 Height: 5 ft 5 in Weight: 57.606 kg ASA Class: 2 Mental Status: Alert & Oriented x3 Airway Class: Mallampati = 2 Dentition: Reports: Normal Dentition (1 Loose tooth bottom front) Thyro-Mental Finger Breadths: 3 Mouth Opening Finger Breadths: 3 ROM/Head Extension: Full Lungs: Clear to Auscultation, Normal Respiratory Effort Cardiovascular: Regular Rate, Regular Rhythm - Allergies Allergies/Adverse Reactions: Allergies Allergy/AdvReac Type Severity Reaction Status Date / Time codeine Allergy Drowsiness Verified 03/12/21 11:36 erythromycin base Allergy Vomiting Verified 03/12/21 11:36 Penicillins Allergy Rash Verified 03/12/21 11:36 metal Allergy Rash Uncoded 03/12/21 11:36 - Acknowledgements Anesthesia Type Planned: General Anesthesia Pt an Appropriate Candidate for the Planned Anesthesia: Yes Alternatives and Risks of Anesthesia Discussed w Pt/Guardian: Yes Pt/Guardian Understands and Agrees with Anesthesia Plan: Yes PreAnesthesia Questionnaire HEENT History: Reports: Cataract, Other (See Below) Other HEENT History: uses glasses for reading, top premanent bridge Cardiovascular History: Reports: Other (See Below) Other Cardiovascular History: states hx of low blood pressure Respiratory History: Reports: Asthma, Bronchitis, Recurrent, Other (See Below) Other Respiratory History: states HX of asthma as a young adult, chronic cough Gastrointestinal History: Reports: Chronic Constipation, Diverticulosis, Hemorrhoids, Other (See Below) Other Gastrointestinal History: dysphagia Genitourinary History: Reports: None HEALTH CARE RECRUITER History: Reports: None Musculoskeletal History: Reports: Arthritis, Fracture, Neck Pain, Chronic, Osteoporosis, Other (See Below) Other Musculoskeletal History: "muscle and nerve disorder", hx of "chip fracture" to right elbow and bilateral ankles (no surgery), hx of fx hip Neurological History: Reports: Other (See Below) Other Neuro History: Neurofibromatosis, "muscle and nerve disorder", chronic fatigue, hx of motion sickness Psychiatric History: Reports: None Endocrine/Metabolic History: Reports: Vitamin D Deficiency, Other (See Below) Other Endocrine/Metabolic History: "fluid around thyroid gland drained" Hematologic History: Reports: None Immunologic History: Reports: None Oncologic (Cancer) History: Reports: Basal Cell Carcinoma Dermatologic History: Reports: None - Infectious Disease History Infectious Disease History: Reports: Chicken Pox, Mumps - Past Surgical History Head Surgeries/Procedures: Reports: None HEENT Surgical History: Reports: Cataract Surgery Cardiovascular Surgical History: Reports: None Respiratory Surgical History: Reports: None GI Surgical History: Reports: Colonoscopy, Other (See Below) Other GI Surgeries/Procedures: hx of hemorrhoidectomy Female Surgical History: Reports: Breast Biopsy, Hysterectomy Endocrine Surgical History: Reports: None Neurological Surgical History: Reports: None Musculoskeletal Surgical History: Reports: ORIF, Other (See Below) Other Musculoskeletal Surgeries/Procedures:: Excision of multiple neurofibromas (about 10 surgeries), ORIF left hip- has screws Oncologic Surgical History: Reports: Other (See Below) Other Oncologic Surgeries/Procedures: basal cell removed from back Dermatological Surgical History: Reports: Skin Biopsy - SUBSTANCE USE Tobacco Use Status *Q: Never Tobacco User Recreational Drug Use History: No - HOME MEDS Home Medications: Home Meds Docusate Sodium [Colace] 100 mg PO DAILY 08/28/17 [History] Psyllium Husk [Fiber] 1 cap PO DAILY 08/28/17 [History] polyethylene glycoL 3350 [MiraLAX] 1 tsp PO ASDIRECTED 08/28/17 [History] Acetaminophen [Tylenol Extra Strength] 500 mg PO DAILY PRN 06/20/19 [History] Alendronate Sodium 70 mg PO WEEKLY 03/12/21 [History] Cholecalciferol (Vitamin D3) [Vitamin D3] 400 unit PO DAILY 03/12/21 [History] Ergocalciferol (Vitamin D2) [Vitamin D2] 50,000 unit PO ASDIRECTED 03/12/21 [History] Ofloxacin 5 drop TOP BID 03/12/21 [History] - CURRENT (IN HOUSE) MEDS Current Meds: Current Medications Lactated Ringer's (Ringers, Lactated) 1,000 mls @ 125 mls/hr IV ASDIRECTED PHUONG Sodium Chloride (Sodium Chloride 0.9% 10 Ml Syringe) 10 ml FLUSH ASDIRECTED PRN PRN Reason: Keep Vein Open Sodium Chloride (Sodium Chloride 0.9% 2.5 Ml Syringe) 2.5 ml FLUSH ASDIRECTED PRN PRN Reason: Keep Vein Open Sodium Chloride (Sodium Chloride 0.9% 10 Ml Syringe) 10 ml FLUSH ASDIRECTED PRN PRN Reason: Keep Vein Open Sodium Chloride (Sodium Chloride 0.9% 2.5 Ml Syringe) 2.5 ml FLUSH ASDIRECTED PRN PRN Reason: Keep Vein Open Sodium Chloride (Sodium Chloride 0.9% 20 Ml Sdv) 10 ml IV ASDIRECTED PRN PRN Reason: IV Use
[2021-03-18] MEDS ORDERED: fentaNYL 100 MCG/2 ML SDV ONE (10:06)
[2021-03-18] MEDS ORDERED: propofoL 50 ML ONE (10:09)
[2021-03-18] MEDS ORDERED: Benzocaine 20% Topical Spray UD ONE (10:30)
[2021-03-18] MEDS ORDERED: Ondansetron 4 MG/2 ML SDV ONE (10:36)
[2021-03-18] MEDS ORDERED: Bupivacaine 0.5% 30 ML SDV ONE (10:53)
--- NOTE | 2021-03-18 11:39 | PCM.POSTAN ---
POST ANESTHESIA ASSESSMENT - MENTAL STATUS Mental Status: Somnolent - VITAL SIGNS Vital Signs: Last Vital Signs Temp 97.7 F 03/18/21 09:18 Pulse 75 03/18/21 09:18 Resp 16 03/18/21 09:18 BP 107/69 03/18/21 09:18 Pulse Ox 94 L 03/18/21 09:18 - RESPIRATORY Respiratory Status: Respiratory Rate WNL, Airway Patent, O2 Saturation Stable - CARDIOVASCULAR CV Status: Pulse Rate WNL, Blood Pressure Stable - GASTROINTESTINAL GI Status: No Symptoms - PAIN Free Text/Narrative:: Resting comfortably - POST OP HYDRATION Hydration Status: Adequate & Stable
--- NOTE | 2021-03-18 11:48 | PCM48HPAN ---
Post Anesthesia Note - EVALUATION WITHIN 48HRS OF ANESTHETIC Vital Signs in Normal Range: Yes Patient Participated in Evaluation: Yes Respiratory Function Stable: Yes Airway Patent: Yes Cardiovascular Function Stable: Yes Hydration Status Stable: Yes Pain Control Satisfactory: Yes Nausea and Vomiting Control Satisfactory: Yes Mental Status Recovered: Yes Vital Signs: Last Vital Signs Temp 99.1 F 03/18/21 11:40 Pulse 68 03/18/21 11:40 Resp 14 03/18/21 11:40 BP 107/69 03/18/21 09:18 Pulse Ox 98 03/18/21 11:40 - COMMENTS/OBSERVATIONS Free Text/Narrative:: Pt doing well post-op. VSS. No apparent anesthetic complications. Dr. Otto Aguilar
--- NOTE | 2021-03-18 11:50 | PCM.OPNOTE ---
- General Post-Op/Procedure Note Date of Surgery/Procedure: 03/18/21 Operative Procedure(s): Diagnostic EGD, excision multiple neurofibromas Findings: Normal appearing EGD, excision 8 back neurofibromas and 5 abdominal neurofibromas Pre Op Diagnosis: Dysphagia, neurofibromatosis Post-Op Diagnosis: same Anesthesia Technique: [facility] [place] Primary Surgeon: Noni Wood Fluid Replacement, Intraop: 1,000 EBL in mLs: 5 Condition: Good
[2021-03-18 13:04] VITALS: BP 122/68; PULSE 83
--- NOTE | 2021-03-18 17:25 | OR ---
SURGEON: NONI WOOD MD DATE OF PROCEDURE: 03/18/2021 PREOPERATIVE DIAGNOSES: 1. Dysphagia. 2. Neurofibromatosis. POSTOPERATIVE DIAGNOSES: 1. Dysphagia. 2. Neurofibromatosis. PROCEDURES PERFORMED: Diagnostic esophagogastroduodenoscopy with biopsy and excision multiple neurofibromas. PRIMARY SURGEON: Noni Wood MD ANESTHESIA: MAC, local. FLUIDS: 1000 mL of crystalloid. ESTIMATED BLOOD LOSS: 5 mL. INSTRUMENT USED: Olympus endoscope. EXTENT OF EXAM: To the second portion of the duodenum. PREPARATION: Good. LIMITATIONS: None. FINDINGS: Eight neurofibromas removed from the back, three of these were large and five were small. Five neurofibromas removed on the anterior abdomen. Two of these were big, three of these were small. Normal appearing EGD. COMPLICATIONS: None. INDICATIONS: Patient is a 61-year-old female with neurofibromatosis. She came to see me in clinic to discuss excising some of these neurofibromas. Several of them are catching on her clothing and causing irritation. She also complained of ongoing dysphagia. The decision was made to perform a diagnostic EGD followed by excision of the symptomatic neurofibromas on her back and abdomen. I explained both procedures, expected perioperative course, and the risks. She verbalized understanding and wishes to proceed. PROCEDURE IN DETAIL: Patient was brought in to the OR and placed on the OR cart in a left lateral decubitus position. A time-out was completed verifying the patient's name, age, date of , allergies, and procedure to be performed. Monitored anesthesia care was induced. A bite block was placed in the patient's mouth. Continuous oxygen was provided via face mask throughout the procedure. I started with the EGD portion of the procedure first. After adequate sedation was achieved, a well-lubricated endoscope was placed in the patient's mouth and advanced under direct visualization to second portion of the duodenum. This appeared normal and a photograph was taken. I then fully withdrew the scope while examining the upper GI tract. The duodenum appeared normal. A biopsy was taken of the duodenal mucosa and sent for histologic review. The scope was brought into the stomach and a photograph was taken of the pylorus and GE junction. Both appeared anatomically normal. The gastric mucosa was free of inflammation or ulceration. Biopsies were taken of the gastric antrum, body, and fundus and sent for histologic review and H pylori testing. The scope was brought into the distal esophagus. The Z-line appeared healthy. The esophageal mucosa appeared free of pathology. A biopsy was taken 1 cm above the Z-line and sent to Pathology for histologic review. The scope was removed and this portion of procedure terminated. We then turned our attention to the patient's back while she was still in left lateral decubitus position. Her back was prepped and draped in usual standard fashion. I had the patient preoperatively khai all of the neurofibromas that she would like removed. There were eight of these. Three of these were around 1 cm in size. Five of these were less than 5 mm in size. The less than 5 mm in size neurofibromas were excised using cautery on the cut function. They were put into a jar together and sent to Pathology. The three larger polyps were excised using a 15-blade. Before excision, all of these sites were anesthetized with 0.5% Marcaine plain. The three larger polyps measured 8 x 5 x 5 mm in size, 1.5 x 1.2 x 1 cm in size, and 2 x 1.5 x 1 cm in size. These were sent together in the same jar. There were two jars from the back, one was labeled neurofibromatosis big and the other neurofibromatosis small. The back lesions were closed with interrupted 3-0 Ethilon suture as well as running locking 3-0 Ethilon suture. On the smaller excision sites, I covered these in bacitracin and covered them with sterile dressings. The bigger neurofibroma sites, I just covered with sterile dressings. The patient was then placed on her abdomen and her abdomen was prepped and draped in usual standard fashion. The two bigger lesions on the patient's abdomen were excised using a 15-blade. The three smaller lesions were excised using cautery on the cut function. All these areas were anesthetized first with 0.5% Marcaine plain. I closed the bigger excision sites using interrupted 3-0 Ethilon suture as well as a running locking 3-0 Ethilon suture. The three small sites were covered with bacitracin and sterile dressings. The two bigger sites were covered with sterile dressings. The patient tolerated the procedures well and was awoken and taken to PACU in stable condition. JEFF ALVARADO /[id number]
== END 2021-03-18 12:45 | disposition home or self-care (01) ==
LOC: MW.SDS 08:57
PROVIDERS: ATTEND Surgery
DX: K29.50 Unspecified chronic gastritis without bleeding (principal); Q85.00 Neurofibromatosis, unspecified; D64.9 Anemia, unspecified; G47.00 Insomnia, unspecified; M81.0 Age-related osteoporosis without current pathological fracture; J45.909 Unspecified asthma, uncomplicated; E55.9 Vitamin D deficiency, unspecified; Z88.5 Allergy status to narcotic agent; Z88.8 Allergy status to other drugs, medicaments and biological substances; Z88.0 Allergy status to penicillin; Z79.899 Other long term (current) drug therapy; Z98.890 Other specified postprocedural states; Z87.891 Personal history of nicotine dependence
CPT/HCPCS: 43239; 64788; A9270; J2370; J2405; J2704; J3010; J3490; J7120; 00731

== ENCOUNTER 2023-03-21 06:26 | Day surgery (SDC) | payer MEDICAID ==
[2023-03-21] MEDS ORDERED: Morphine 2 MG/ML SYRINGE IVPUSH PRN (07:05)
[2023-03-21] MEDS ORDERED: droPERidol 5 MG/2 ML SDV IVPUSH PRN (07:05)
[2023-03-21] MEDS ORDERED: fentaNYL 50 MCG/ML SDV IVPUSH PRN (07:05)
[2023-03-21] MEDS ORDERED: Metoclopramide 10 MG/2 ML SDV IVPUSH PRN (07:05)
[2023-03-21] MEDS ORDERED: Ondansetron 4 MG/2 ML SDV IVPUSH PRN (07:05)
[2023-03-21] MEDS ORDERED: HYDROmorphone 1 MG/ML Syringe IVPUSH PRN (07:05)
[2023-03-21] MEDS ORDERED: Albuterol 0.083% 2.5 MG/3 ML Neb Soln NEB PRN (07:05)
[2023-03-21] MEDS ORDERED: Naloxone 0.4 MG/ML SDV IVPUSH PRN (07:05)
[2023-03-21] MEDS ORDERED: Bupivacaine 0.5% 30 ML SDV ONE (07:21)
[2023-03-21] MEDS ORDERED: Lidocaine 1% 20 ML MDV ONE (07:22)
[2023-03-21] MEDS ORDERED: Water For Injection, Sterile 20 ML ONE (07:29)
[2023-03-21] MEDS ORDERED: dexmedeTOMIDine HCl 200 MCG/2 ML SDV ONE (07:29)
[2023-03-21] MEDS ORDERED: propofoL 50 ML ONE (07:30)
[2023-03-21] MEDS ORDERED: fentaNYL 100 MCG/2 ML SDV ONE (07:35)
[2023-03-21] MEDS ORDERED: ceFAZolin 2 GM Vial ONE (08:12)
[2023-03-21] MEDS ORDERED: Magnesium Sulfate (4.06 MEQ/ML) 5 GM/10 ML SDV ONE (08:14)
[2023-03-21] MEDS ORDERED: ePHEDrine 50 MG/ML SDV ONE (08:29)
[2023-03-21] MEDS ORDERED: Ondansetron 4 MG/2 ML SDV ONE (09:06)
[2023-03-21] MEDS ORDERED: Ketorolac 30 MG/ML SDV ONE (09:06)
[2023-03-21 13:32] VITALS: BP 127/73; PULSE 90
[2023-03-21] MEDS ORDERED: ceFAZolin 2 GM in Sodium Chloride 0.9% 50 ML IV ONE (16:35)
== END 2023-03-21 11:20 | disposition home or self-care (01) ==
LOC: MW.SDS 06:26
PROVIDERS: ATTEND Surgery
DX: C44.519 Basal cell carcinoma of skin of other part of trunk (principal); D36.13 Benign neoplasm of peripheral nerves and autonomic nervous system of lower limb, including hip; D36.17 Benign neoplasm of peripheral nerves and autonomic nervous system of trunk, unspecified; J45.909 Unspecified asthma, uncomplicated; K21.9 Gastro-esophageal reflux disease without esophagitis; Z86.16 Personal history of COVID-19; Z79.899 Other long term (current) drug therapy; Z88.5 Allergy status to narcotic agent; Z88.0 Allergy status to penicillin; Z88.1 Allergy status to other antibiotic agents
CPT/HCPCS: 11403; 11406; 11420; 64999; J0131; J0665; J0690; J1885; J2405; J2704; J3010; J3475; J7120; 00300; J3490

== ENCOUNTER → 2025-01-07 | Day surgery (SDC) | payer MEDICAID ==
[~2025-01-07] MED LIST changes: +Albuterol 0.083% 2.5 MG/3 ML Neb Soln NEB PRN; +Dexamethasone 4 MG/ML 5 ML MDV ONE; +Ketamine HCL/NACL, ISO-OSM 50 MG/5 ML Syringe ONE; +Ketorolac 30 MG/ML SDV ONE; -Lactated Ringers 1,000 ML IV SCH; +Naloxone 0.4 MG/ML SDV IVPUSH PRN; +Ondansetron 4 MG/2 ML SDV IVPUSH PRN; +Ondansetron 4 MG/2 ML SDV ONE; -Sodium Chloride 0.9% 20 ML SDV IV PRN; +ceFAZolin 2 GM in Water For Injection, Sterile 20 ML IVPUSH ONE; +fentaNYL 100 MCG/2 ML SDV ONE; +fentaNYL 50 MCG/ML SDV IVPUSH PRN; +propofoL 1,000 MG/100 ML 100 ML ONE; +propofoL 500 MG/50 ML 50 ML ONE
[2025-01-07] MEDS: Lactated Ringers 1,000 ML IV SCH (09:54)
[2025-01-07 14:35] VITALS: BP 107/62; PULSE 80
== END | disposition home or self-care (01) ==
LOC: MW.SDS 08:42
PROVIDERS: ATTEND Surgery
DX: C43.72 Malignant melanoma of left lower limb, including hip (principal); D23.4 Other benign neoplasm of skin of scalp and neck; I10 Essential (primary) hypertension; K21.9 Gastro-esophageal reflux disease without esophagitis; D64.9 Anemia, unspecified; Z88.0 Allergy status to penicillin; Z88.1 Allergy status to other antibiotic agents; Z88.5 Allergy status to narcotic agent; Z79.899 Other long term (current) drug therapy
CPT/HCPCS: 11602; 64788; J0665; J0690; J1100; J1596; J1885; J2003; J2405; J2704; J2765; J3010; J7120; J7999; 00300; J2371; J3490